=== PATIENT | male | born 1965 | race Caucasian/White ===

== ENCOUNTER 2016-12-03 17:11 | Emergency (ER) | payer BC ==
[~2016-12-03] VITALS: Ht 170.2 cm; Wt 90.5 kg
[~2016-12-03 17:11] MED LIST: CLARITIN10 MG PO
[2016-12-03 18:00] LABS: HEMATOCRIT 46.5 % (38.0-50.0); MCH 28.7 PG (29.0-34.0); MCHC 33.5 G/DL (30.0-36.0); MCV 85.6 FL (86-99); MEAN PLAT.VOLUME 10.2 uM^3 (9.0-12.4); PLATELET COUNT 232 K/uL (156-360); RBC DIS.WIDTH-CV 12.1 % (11.8-14.6); RBC DIS.WIDTH-SD 37.3 % (39-53); RED BLOOD COUNT 5.43 M/uL (4.00-5.50); WHITE BLOOD COUNT 8.7 K/uL (4.1-10.2)
[2016-12-03 18:12] LABS: CHLORIDE 105 mEq/L (99-109); POTASSIUM 4.3 mEq/L (3.7-5.4); SODIUM 140 mEq/L (136-147)
[2016-12-03 18:14] LABS: GLUCOSE 94 mg/dL (70-99)
[2016-12-03 18:15] LABS: ANION GAP 12 MEQ/L (2-14)
[2016-12-03 18:18] LABS: ALKALINE PHOSPHATASE 61 IU/L (3-129); GFR ESTIMATE (CALCULATED) 35 mL/min/
[2016-12-03 18:19] LABS: UREA NITROGEN (BUN) 21 mg/dL (9-23)
[2016-12-03 19:04] LABS: ADD MIUA? YES; BILIRUBIN NEGATIVE; BLOOD SMALL; COLOR YELLOW ((YELLOW)); GLUCOSE (STRIP) NEGATIVE; KETONES 20; LEUKOCYTES NEGATIVE; NITRITE NEGATIVE; PROTEIN (STRIP) NEGATIVE; SPECIFIC GRAVITY 1.016 (1.000-1.030); UROBILINOGEN 0.2 MG/DL (0.2-1.0)
[2016-12-03 19:09] LABS: BACTERIA NONE SEEN /HPF; EPITHELIAL CELLS NONE SEEN /HPF; MUCUS TRACE /LPF; RED BLOOD CELLS TNTC /HPF (0-5); UCUL ADDED? NO; WHITE BLOOD CELLS 0-5 /HPF (0-5)
[2016-12-03] MEDS ORDERED: FLOMAX0.4 MG PO (22:11)
[2016-12-03] MEDS ORDERED: NORCO 5/3251 TABLET PO (22:11)
[2016-12-03] MEDS ORDERED: ZOFRAN ODT8 MG PO (22:11)
[2016-12-03] MEDS ORDERED: MOTRIN800 MG PO (22:20)
[2016-12-03 22:22] VITALS: BP 141/90
== END 2016-12-03 22:23 | disposition home or self-care (01) ==
LOC: EME 17:11
DX: N20.1 Calculus of ureter (principal); N23 Unspecified renal colic; Z87.442 Personal history of urinary calculi
CPT/HCPCS: 74176; 80053; 81003; 85027; 99281; 99284

== ENCOUNTER → 2017-12-25 | Outpatient (CLI) | payer BC ==
[~2017-12-25] MED LIST changes: +FLOMAX0.4 MG PO; +MOTRIN800 MG PO; +NORCO 5/3251 TABLET PO; +ZOFRAN ODT8 MG PO
== END | disposition home or self-care (01) ==
LOC: CDC 14:07
DX: Z01.810 Encounter for preprocedural cardiovascular examination (principal); S83.231D Complex tear of medial meniscus, current injury, right knee, subsequent encounter; I10 Essential (primary) hypertension; I44.0 Atrioventricular block, first degree; R94.31 Abnormal electrocardiogram [ECG] [EKG]
CPT/HCPCS: 93000